=== PATIENT | male | born 2000 | race Hispanic/Latino ===

== ENCOUNTER 2018-11-21 16:04 | Emergency (ER) | payer OTHER ==
[2018-11-21] MEDS ORDERED: LIDOCAINE 1% 20 ML MDV ONE (16:24)
--- NOTE | 2018-11-21 16:51 | RAD REPORT ---
EXAM DESCRIPTION: RAD - Abdomen 1 View (KUB) - 11/21/2018 4:43 pm CLINICAL HISTORY: TRAUMA Pain COMPARISON: No comparisons FINDINGS: The bowel gas pattern is non-obstructive. No evidence of free air or pneumatosis. No suspi cious calcifications. No significant bony findings. IMPRESSION: Negative examination.
[2018-11-21 16:52] LABS: Absolute Lymphocytes (CBC) 2.2 K/uL (0.7-4.9); Absolute Monocytes 0.9 K/uL (0.1-1.3); Absolute Neutrophil 11.1 K/uL (1.8-8.0); Basophils % 0.5 % (0-1.3); Eosinophils % 1.2 % (0-4.4); Hematocrit 46.6 % (39.6-49.0); Lymphocytes % 15.4 % (15.3-44.8); MPV 9.9 fL (7.6-11.3); Monocytes % 6.2 % (3.3-12.3); RBC Red Blood Cell Count 5.03 M/uL (4.33-5.43)
--- NOTE | 2018-11-21 16:54 | RAD REPORT ---
EXAM DESCRIPTION: RAD - Chest Single View - 11/21/2018 4:43 pm CLINICAL HISTORY: TRAUMA Chest pain. COMPARISON: Tibia Fib Right W Comparison dated 11/21/2018; Foot Right W Comparison dated 11/21/2018Abdom en 1 View (KUB) dated 11/21/2018 FINDINGS: Portable technique limits examination quality. The lungs are grossly clear. The heart is normal in size. No displaced fractures. IMPRESSION: No acute intrathoracic process suspected.
[2018-11-21 17:00] LABS: BUN Blood Urea Nitrogen 7 mg/dL (7-18); Bicarbonate 27 mmol/L (21-32); Glucose Level 104 mg/dL (74-106); Potassium 3.8 mmol/L (3.5-5.1); Sodium Level 142 mmol/L (136-145)
[2018-11-21] MEDS ORDERED: CEFAZOLIN/SWI 1gm 1 GM/10 ML SYR ONE (17:03)
[2018-11-21] MEDS ORDERED: TETANUS & DIPHTHERIA TOX,ADULT 0.5 ML VIAL ONE (17:03)
[2018-11-21] MEDS ORDERED: DERMABOND SKIN ADHESIVE TOP ONE (17:08)
--- NOTE | 2018-11-21 17:39 | ER ---
Nurse's Notes [facility] Name: David Garvey Age: 18 yrs Sex: Male : 2000 Arrival Date: 11/21/2018 Time: 16:06 Bed 2 Private MD: Diagnosis: Auditory hallucinations;Laceration of Subcutaneous tissue abdomen without penetration of muscle or fascia ;Laceration without foreign body of left wrist;Laceration of chest wall without foreign body Presentation: 11/21 16:01 Presenting complaint: EMS states: pt has hx of schizophrenia/bipolar, hearing voices iw telling him to "get the demons out", pt states "it wouldn't come out", pt states he cut himself with 4 razor blades, superficial lacerations noted to left bicep, right forearm, right thigh, deep laceration noted to mid abdomen, approx 4 cm by 6 cm, bleeding controlled, Dr. Max at bedside to assess wound, pt A\\T\\OX3, skin pink, warm, dry, VSS. Care prior to arrival: Bleeding of injury controlled. Injury dressed. Mechanism of Injury: Laceration sustained assisted while self-inflicted from razor blade, Injury was self inflicted. 16:01 Acuity: SPEEDY 2 iw 16:01 Method Of Arrival: EMS: [facility] iw 16:01 Trauma event details: Injury occurred in the [facility], Injury occurred: in an iw institution. Injury occurred: November 21, 2018. 16:01 Note received report at 1543 from [facility] that pt sustained deep laceration to iw abdomen, appeared to be though muscle, 7 inches X 3 inches, Trauma STAT was called at that time. 16:05 Transition of care: patient was not received from another setting of care. Onset of iw symptoms was November 21, 2018. Risk Assessment: Do you want to hurt yourself or someone else? Patient reports no desire to harm self or others. Initial Sepsis Screen: Does the patient meet any 2 criteria? No. Patient's initial sepsis screen is negative. Does the patient have a suspected source of infection? No. Patient's initial sepsis screen is negative. Trauma Activation: Stat Physician: ED Physician; Name: ; Notified At: ; Arrived At: Physician: General Surgeon; Name: ; Notified At: ; Arrived At: Physician: Radiology; Name: ; Notified At: ; Arrived At: Physician: Respiratory; Name: ; Notified At: ; Arrived At: Physician: Lab; Name: ; Notified At: ; Arrived At: Trauma Activation: Physician: ED Physician; Name: Dr. Arias/DANIELLE Marroquin; Notified At: 15:43; Arrived At: 15:43 Physician: General Surgeon; Name: Dr. Max; Notified At: 15:43; Arrived At: Physician: Radiology; Name: ; Notified At: 15:43; Arrived At: Physician: Respiratory; Name: Yanelis; Notified At: 15:43; Arrived At: 15:46 Physician: Lab; Name: Mirian; Notified At: 15:43; Arrived At: 15:46 Historical: - Allergies: 16:22 ANTIHISTAMINES; iw - Home Meds: 16:22 Effexor Oral daily [Active]; iw - PMHx: 16:22 Schizophrenia; Bipolar disorder; iw - PSHx: 16:22 None; iw - Immunization history: Last tetanus immunization: unknown. - Social history:: Smoking status: Patient uses tobacco products. - Ebola Screening: : Patient negative for fever greater than or equal to 101.5 degrees Fahrenheit, and additional compatible Ebola Virus Disease symptoms Patient denies exposure to infectious person Patient denies travel to an Ebola-affected area in the 21 days before illness onset No symptoms or risks identified at this time. Screenin:05 Nutritional screening: No deficits noted. Fall Risk None identified. iw 16:25 Abuse screen: Denies threats or abuse. Denies injuries from another. Tuberculosis iw screening: No symptoms or risk factors identified. Primary Survey: 16:01 NO uncontrolled hemorrhage observed. A: The patient is alert. Airway: patent, No iw supplemental oxygen in use on arrival. Breathing/Chest: Respiratory pattern: regular, Respiratory effort: spontaneous, Breath sounds: clear, bilaterally. Chest inspection: symmetrical rise and fall of the chest. Circulation: Cardiac rhythm: sinus tachycardia Heart tones present. Pulses: palpable right radial artery, left radial artery, left carotid pulse and right carotid pulse. Skin color: pink, Skin temperature: warm, dry. Disability Alert. 16:05 Exposure/Environment: All clothing and personal items were removed. There is no iw evidence of uncontrolled external bleeding. Obvious injury(ies) are noted at this time: laceration to mid abdomen A warming method has been applied: A warm blanket has been provided to the patient. 16:15 Reassessment Airway Airway Patent Breathing/Chest Respiratory pattern Regular iw Respiratory effort Spontaneous Breath sounds Clear Chest inspection Symmetrical Disability Alert. 17:00 Reassessment Airway Airway Patent Breathing/Chest Respiratory pattern Regular iw Disability Alert. Secondary Survey: 16:05 HEENT: No deficits noted. Head No injury/deformity Face Other dried blood noted to left iw side of mouth Eyes: No injury or deformity noted. Ears: clear bilaterally. Nose: clear to bilateral nares. Gastrointestinal: Abdomen is soft, flat, Other laceration to mid abd wall Bowel sounds present in all quadrants. Palpation No deficit noted. Musculoskeletal: Range of motion: intact in all extremities. Injury Description: Laceration sustained to abdomen, right arm, left arm and right leg. 17:00 Musculoskeletal: Range of motion: intact in all extremities. Injury Description: iw lacerations repaired, wound care complete, dressings in place, CMS intact, VSS. Assessment: 16:02 General: Appears in no apparent distress. Behavior is calm, cooperative. Pain: iw Complains of pain in abdomen Pain currently is 2 out of 10 on a pain scale. Neuro: Level of Consciousness is awake, alert, obeys commands, Oriented to person, place, time, situation, Moves all extremities. EENT: dried blood noted to left side of mouth, pt states he cut the corner of his mouth . Cardiovascular: Heart tones S1 S2 Patient's skin is warm and dry. Rhythm is regular. Respiratory: Respiratory effort is even, unlabored, Respiratory pattern is regular, Breath sounds are clear bilaterally. GI: GI: Abdomen is flat, non-distended, Bowel sounds present X 4 quads. Abd is soft and non tender X 4 quads. Derm: Skin is healthy with good turgor. Musculoskeletal: Range of motion: intact in all extremities. Injury Description: Laceration sustained to left bicep is superficial, 7.6 to 20 cm long, not bleeding, multiple lacerations noted to left bicep, mason-cross pattern across entire bicep. Injury Description: Laceration sustained to dorsal aspect of right forearm is superficial, 7.6 to 20 cm long, not bleeding, long, vertical scratches noted to forearm no active bleeding noted at this time. Injury Description: Laceration sustained to right quadriceps is superficial, 2.6 to 7.5 cm long, not bleeding, spells out "FREE HIM" across upper thigh area. 16:02 GI:. : No signs and/or symptoms were reported regarding the genitourinary system. iw Injury Description: Laceration sustained to middle abdominal area, superior to umbilicus is full thickness, 2.6 to 7.5 cm long, not bleeding, was sustained 30-60 minutes ago. 16:50 Reassessment: Patient appears in no apparent distress at this time. Patient and/or iw family updated on plan of care and expected duration. Pain level reassessed. Patient is alert, oriented x 3, equal unlabored respirations, skin warm/dry/pink. 17:30 Reassessment: Patient appears in no apparent distress at this time. Patient and/or iw family updated on plan of care and expected duration. Pain level reassessed. Patient is alert, oriented x 3, equal unlabored respirations, skin warm/dry/pink. 18:16 Reassessment: awaiting transport van to transport pt to another facility. iw Vital Signs: 16:02 BP 136 / 91; Pulse 111; Resp 18 S; Temp 98.0(TE); Pulse Ox 96% on R/A; Weight 95.25 kg; iw Height 5 ft. 9 in. (175.26 cm); Pain 2/10; 16:07 BP 125 / 82; Pulse 98; Resp 16 S; Pulse Ox 97% on R/A; Pain 2/10; iw 16:18 BP 123 / 75; Pulse 92; Resp 16; Temp 98.2(TE); Pulse Ox 100% on R/A; Pain 2/10; iw 17:07 BP 128 / 70; Pulse 87; Resp 16; Temp 98.0(TE); Pulse Ox 100% on R/A; Pain 0/10; iw 17:22 BP 110 / 70; Pulse 83; Resp 16; Pulse Ox 100% on R/A; iw 18:00 BP 126 / 84; Pulse 98; Resp 16; Temp 98.3(TE); Pulse Ox 100% on R/A; Pain 0/10; iw 16:02 Body Mass Index 31.01 (95.25 kg, 175.26 cm) iw Carmen Coma Score: 16:02 Eye Response: spontaneous(4). Verbal Response: oriented(5). Motor Response: obeys iw commands(6). Total: 15. 16:07 Eye Response: spontaneous(4). Verbal Response: oriented(5). Motor Response: obeys iw commands(6). Total: 15. Trauma Score (Adult): 16:02 Eye Response: spontaneous(1); Verbal Response: oriented(1); Motor Response: obeys iw commands(2); Systolic BP: > 89 mm Hg(4); Respiratory Rate: 10 to 29 per min(4); Mohawk Score: 15; Trauma Score: 12 16:07 Eye Response: spontaneous(1); Verbal Response: oriented(1); Motor Response: obeys iw commands(2); Systolic BP: > 89 mm Hg(4); Respiratory Rate: 10 to 29 per min(4); Mohawk Score: 15; Trauma Score: 12 17:07 Eye Response: spontaneous(1); Verbal Response: oriented(1); Motor Response: obeys iw commands(2); Systolic BP: > 89 mm Hg(4); Respiratory Rate: 10 to 29 per min(4); Carmen Score: 15; Trauma Score: 12 18:00 Eye Response: spontaneous(1); Verbal Response: oriented(1); Motor Response: obeys iw commands(2); Systolic BP: > 89 mm Hg(4); Respiratory Rate: 10 to 29 per min(4); Carmen Score: 15; Trauma Score: 12 ED Course: 16:05 Patient maintains SpO2 saturation greater than 95% on room air. Thermoregulation: warm iw blanket given to patient. 16:05 Inserted saline lock: 18 gauge in right antecubital area, using aseptic technique. iw 16:05 Patient has correct armband on for positive identification. iw 16:06 Patient arrived in ED. ss 16:09 Jojo Dave, RN is Primary Nurse. iw 16:18 Triage completed. iw 16:18 Delroy Arias MD is Attending Physician. rn 16:18 Shane Agrawal PA is PHCP. rn 16:30 Assist provider with laceration repair on abdomen that was between 2.6 to 7.5 cm using iw lacey. Set up tray. Performed by Shane SANTOS Dressed with 4X4s, KerwhitxBudJose, Patient tolerated well. 16:43 X-ray completed. Portable x-ray completed in exam room. Patient tolerated procedure ml well. 16:43 Abdomen 1 View (KUB) XRAY In Process Unspecified. EDMS 16:43 CXR XRAY In Process Unspecified. EDMS 16:47 Arm band placed on. iw 16:50 Assist provider with laceration repair on mouth that was 2.5 cm. or less using sutures. iw Set up tray. Performed by Sahne SANTOS Patient tolerated well. 18:20 IV discontinued, intact, bleeding controlled, No redness/swelling at site. Pressure iw dressing applied. Administered Medications: 16:10 Drug: NS 0.9% 1000 ml Route: IV; Rate: 1000 ml; Site: right antecubital; iw 16:30 Drug: Lidocaine (1 %) 1 vials Volume: 20 ml; Route: Infiltration; iw 16:56 Drug: Ancef 1 grams Route: IVPB; Site: right antecubital; iw 16:56 Drug: Tetanus-Diphtheria Toxoid Adult 0.5 ml {Track Greaser: [employer]. Exp: iw 03/21/2020. Lot #: [id number]. } Route: IM; Site: right deltoid; 18:00 Follow up: Response: No adverse reaction iw Intake: 18:30 IV: 1000ml (IV Fluid); Total: 1000ml. iw Outcome: 17:38 Discharge ordered by MD. barroso 18:35 Discharged to Law Enforcement iw 18:35 Condition: good 18:35 Discharge instructions given to patient, Instructed on discharge instructions, follow up and referral plans. medication usage, Demonstrated understanding of instructions, follow-up care, medications, Prescriptions given X 1. 18:35 Patient's length of stay in the Emergency Department was greater than 2 hours. waiting iw for assisted transportation Patient's length of stay extended due to 18:36 Patient left the ED. iw Signatures: Dispatcher [employer] Jojo Yost RN RN iw Lopez, Melissa ml Nieto, Roman, MD MD rn Smirch, Shelby, RN RN ss Roszak, Josh, PA PA [id number] Joaquin, Henry, RN RN hj Corrections: (The following items were deleted from the chart) 16:19 16:07 BP 136 / 91; hj iw 16:20 16:07 BP 136 / 91; Pulse 111bpm; Resp 18bpm; Spontaneous; Pulse Ox 96% RA; Temp 98.0F iw Temporal; 95.25 kg; Height 5 ft. 9 in.; BMI: 31.0; Pain 2/10; iw 16:38 16:02 Injury Description: Laceration sustained to right quadriceps is superficial, 2.6 iw to 7.5 cm long, not bleeding, spells out "FREE HIM" across upper thigh area iw 17:08 17:07 BP 128 / 70; Pulse 87bpm; Resp 16bpm; Pulse Ox 100% RA; Pain 0/10; iw iw
--- NOTE | 2018-11-21 17:39 | EDPHYS ---
Physician Documentation [facility] Name: David Garvey Age: 18 yrs Sex: Male : 2000 Arrival Date: 11/21/2018 Time: 16:06 Bed 2 Private MD: ED Physician Delroy Arias HPI: 11/21 17:19 This 18 yrs old Male presents to ER via EMS with complaints of Suicidal jr8 Ideation, Trauma Complaint, Laceration. 17:19 Onset: The symptoms/episode began/occurred acutely, today. Associated signs and jr8 symptoms: The patient has no apparent associated signs or symptoms. Severity of symptoms: At their worst the symptoms were moderate in the emergency department the symptoms are unchanged. The patient has not experienced similar symptoms in the past. The patient has not recently seen a physician. Patient stated that he was hearing voices that would not stop. Cut himself superficially on arms and legs. Carved Hate Me into his skin. Lacerations noted to left wrist, mouth, right chest, and mid abdomen. Initial EMS report was suspected deep laceration to mid abdomen with possible penetration into abdominal cavity. Historical: - Allergies: 16:22 ANTIHISTAMINES; iw - Home Meds: 16:22 Effexor Oral daily [Active]; iw - PMHx: 16:22 Schizophrenia; Bipolar disorder; iw - PSHx: 16:22 None; iw - Immunization history: Last tetanus immunization: unknown. - Social history:: Smoking status: Patient uses tobacco products. - Ebola Screening: : Patient negative for fever greater than or equal to 101.5 degrees Fahrenheit, and additional compatible Ebola Virus Disease symptoms Patient denies exposure to infectious person Patient denies travel to an Ebola-affected area in the 21 days before illness onset No symptoms or risks identified at this time. ROS: 17:19 Eyes: Negative for injury, pain, redness, and discharge, ENT: Negative for injury, jr8 pain, and discharge, Neck: Negative for injury, pain, and swelling, Cardiovascular: Negative for chest pain, palpitations, and edema, Respiratory: Negative for shortness of breath, cough, wheezing, and pleuritic chest pain, Abdomen/GI: Negative for abdominal pain, nausea, vomiting, diarrhea, and constipation, Back: Negative for injury and pain, MS/Extremity: Negative for injury and deformity, Neuro: Negative for headache, weakness, numbness, tingling, and seizure. 17:19 Skin: Positive for laceration(s), of the face, chest, abdomen, right arm, left arm, right leg and left leg. 17:19 Psych: Positive for auditory hallucinations. Exam: 17:19 Head/Face: Normocephalic, atraumatic. Eyes: Pupils equal round and reactive to light, jr8 extra-ocular motions intact. Lids and lashes normal. Conjunctiva and sclera are non-icteric and not injected. Cornea within normal limits. Periorbital areas with no swelling, redness, or edema. ENT: Nares patent. No nasal discharge, no septal abnormalities noted. Tympanic membranes are normal and external auditory canals are clear. Oropharynx with no redness, swelling, or masses, exudates, or evidence of obstruction, uvula midline. Mucous membranes moist. Neck: Trachea midline, no thyromegaly or masses palpated, and no cervical lymphadenopathy. Supple, full range of motion without nuchal rigidity, or vertebral point tenderness. No Meningismus. Chest/axilla: Normal chest wall appearance and motion. Nontender with no deformity. No lesions are appreciated. Cardiovascular: Regular rate and rhythm with a normal S1 and S2. No gallops, murmurs, or rubs. Normal PMI, no JVD. No pulse deficits. Respiratory: Lungs have equal breath sounds bilaterally, clear to auscultation and percussion. No rales, rhonchi or wheezes noted. No increased work of breathing, no retractions or nasal flaring. Back: No spinal tenderness. No costovertebral tenderness. Full range of motion. MS/ Extremity: Pulses equal, no cyanosis. Neurovascular intact. Full, normal range of motion. Neuro: Awake and alert, GCS 15, oriented to person, place, time, and situation. Cranial nerves II-XII grossly intact. Motor strength 5/5 in all extremities. Sensory grossly intact. Cerebellar exam normal. Normal gait. 17:19 Abdomen/GI: Inspection: large 7 cm laceration down through subcutaneous tissue but not into fascia noted with mild bleeding, Bowel sounds: active, Palpation: soft, in all quadrants, mild abdominal tenderness, in the just superior to umbilicus , mass, is not appreciated, rebound tenderness, is not appreciated, voluntary guarding, is not appreciated, involuntary guarding, is not appreciated, no appreciated organomegaly, Indicators: McBurney's point is not tender, Dong's sign is negative, Rovsing's sign is negative, Liver: tenderness, is not appreciated. 17:19 Skin: Patient has multiple superficial lacerations to arms and legs. Left wrist with slightly deeper but well approximated laceration to ventral surface. Another slightly larger but again well approximated laceration noted to right chest wall. Left corner of mouth with mucosal laceration noted that is approximately 1.5 cm in length . Vital Signs: 16:02 BP 136 / 91; Pulse 111; Resp 18 S; Temp 98.0(TE); Pulse Ox 96% on R/A; Weight 95.25 kg; iw Height 5 ft. 9 in. (175.26 cm); Pain 2/10; 16:07 BP 125 / 82; Pulse 98; Resp 16 S; Pulse Ox 97% on R/A; Pain 2/10; iw 16:18 BP 123 / 75; Pulse 92; Resp 16; Temp 98.2(TE); Pulse Ox 100% on R/A; Pain 2/10; iw 17:07 BP 128 / 70; Pulse 87; Resp 16; Temp 98.0(TE); Pulse Ox 100% on R/A; Pain 0/10; iw 17:22 BP 110 / 70; Pulse 83; Resp 16; Pulse Ox 100% on R/A; iw 18:00 BP 126 / 84; Pulse 98; Resp 16; Temp 98.3(TE); Pulse Ox 100% on R/A; Pain 0/10; iw 16:02 Body Mass Index 31.01 (95.25 kg, 175.26 cm) iw Lotus Coma Score: 16:02 Eye Response: spontaneous(4). Verbal Response: oriented(5). Motor Response: obeys iw commands(6). Total: 15. 16:07 Eye Response: spontaneous(4). Verbal Response: oriented(5). Motor Response: obeys iw commands(6). Total: 15. Trauma Score (Adult): 16:02 Eye Response: spontaneous(1); Verbal Response: oriented(1); Motor Response: obeys iw commands(2); Systolic BP: > 89 mm Hg(4); Respiratory Rate: 10 to 29 per min(4); Lotus Score: 15; Trauma Score: 12 16:07 Eye Response: spontaneous(1); Verbal Response: oriented(1); Motor Response: obeys iw commands(2); Systolic BP: > 89 mm Hg(4); Respiratory Rate: 10 to 29 per min(4); Lotus Score: 15; Trauma Score: 12 17:07 Eye Response: spontaneous(1); Verbal Response: oriented(1); Motor Response: obeys iw commands(2); Systolic BP: > 89 mm Hg(4); Respiratory Rate: 10 to 29 per min(4); Carmen Score: 15; Trauma Score: 12 18:00 Eye Response: spontaneous(1); Verbal Response: oriented(1); Motor Response: obeys iw commands(2); Systolic BP: > 89 mm Hg(4); Respiratory Rate: 10 to 29 per min(4); Lotus Score: 15; Trauma Score: 12 Laceration: 17:19 Wound Repair of 7cm ( 2.8in ) subcutaneous laceration to abdomen. Irregularly shaped.. jr8 Minimal bleeding noted.. Distal neuro/vascular/tendon intact. Anesthesia: Local anesthetic administered with 10 mls of 1% lidocaine. Wound prep: Extensive cleansing with betadine, Wound irrigation with saline, Wound explored extensively, Copious irrigation. Skin closed with 15 l[address] [place] using staple gun. Patient tolerated well. 17:19 Wound Repair of 2cm ( 0.8in ) partial thickness laceration to left wrist. Linear jr8 shaped.. Minimal bleeding noted.. Distal neuro/vascular/tendon intact. Wound prep: Extensive cleansing with hibiclenz, Wound irrigation with saline, Wound explored extensively. Skin closed with 1 thin layer Adhesive skin closure using Dermabond. Patient tolerated well. 17:19 Wound Repair of 2cm ( 0.8in ) partial thickness laceration to right anterior chest. jr8 Distal neuro/vascular/tendon intact. Wound prep: Moderate cleansing with hibiclenz, Wound irrigation with saline, Wound explored extensively. Skin closed with 1 thin layer Adhesive skin closure using Dermabond. Patient tolerated well. 17:19 Wound Repair of 1.5cm ( 0.6in ) mucosal laceration to left corner of mouth. Distal jr8 neuro/vascular/tendon intact. Wound prep: Moderate cleansing with hibiclenz, Wound irrigation with saline, Wound explored extensively. Mucosal layer closed with 2 5-0 fast absorbing using interrupted sutures and sterile technique. Patient tolerated well. MDM: 16:18 Patient medically screened. rn 16:18 ED course: Pt evaluated alongside Dr. Max for trauma stat activation, s/p cutting rn himself, half-way concerned may have cut deep, no sign of peritoneal perforation per Dr. Max, cxr and kub negative for foreign body, will irrigate wound and staple. . 17:19 Data reviewed: vital signs, nurses notes, lab test result(s), radiologic studies, plain jr8 films. Data interpreted: Pulse oximetry: on room air is 100 %. Interpretation: normal. Counseling: I had a detailed discussion with the patient and/or guardian regarding: the historical points, exam findings, and any diagnostic results supporting the discharge/admit diagnosis, lab results, radiology results, the need for outpatient follow up, a family practitioner, a psychiatrist, to return to the emergency department if symptoms worsen or persist or if there are any questions or concerns that arise at home. 17:35 ED course: Dr. Max arrived for trauma stat to assist in initial assessment of jr8 potentially critical patient based on EMS report. Dr. Max arrived at 15:50. . 11/21 16:44 Order name: CBC with Diff 8 11/21 16:44 Order name: Basic Metabolic Panel [facility] 11/21 16:17 Order name: Abdomen 1 View (KUB) XRAY; Complete Time: 16:56 eb 11/21 16:17 Order name: CXR XRAY; Complete Time: 16:56 eb 11/21 16:44 Order name: CBC with Automated Diff; Complete Time: 17:06 EDMS 11/21 16:44 Order name: Basic Metabolic Panel; Complete Time: 17:06 EDMS 11/21 16:44 Order name: IV; Complete Time: 17:23 jr8 Administered Medications: 16:10 Drug: NS 0.9% 1000 ml Route: IV; Rate: 1000 ml; Site: right antecubital; iw 16:30 Drug: Lidocaine (1 %) 1 vials Volume: 20 ml; Route: Infiltration; iw 16:56 Drug: Ancef 1 grams Route: IVPB; Site: right antecubital; iw 16:56 Drug: Tetanus-Diphtheria Toxoid Adult 0.5 ml {[employer]: [employer]. Exp: iw 03/21/2020. Lot #: [id number]. } Route: IM; Site: right deltoid; 18:00 Follow up: Response: No adverse reaction iw Disposition: 11/21/18 17:38 Discharged to Law Enforcement. Impression: Auditory hallucinations, Laceration of Subcutaneous tissue abdomen without penetration of muscle or fascia , Laceration without foreign body of left wrist, Laceration of chest wall without foreign body. - Condition is Stable. - Discharge Instructions: Laceration Care, Adult, Psychosis. - Prescriptions for Keflex 500 mg Oral Capsule - take 1 capsule by ORAL route every 6 hours for 10 days; 40 capsule. - Medication Reconciliation Form, Thank You Letter, Antibiotic Education, Prescription Opioid Use form. - Follow up: Private Physician; When: Upon discharge from the Emergency Department; Reason: Recheck today's complaints, Continuance of care, Re-evaluation by your physician. - Problem is new. - Symptoms have improved. Addendum: 11/25/2018 07:02 Co-signature as Attending Physician, Delroy Arias MD. r n Signatures: Dispatcher [employer] EDMS Jojo Dave RN RN iw Nieto, Roman, MD MD rn Roszak, Josh, PA PA jr8 Corrections: (The following items were deleted from the chart) 11/21 18:36 17:38 11/21/2018 17:38 Discharged to Law Enforcement. Impression: Auditory iw hallucinations; Laceration of Subcutaneous tissue abdomen without penetration of muscle or fascia ; Laceration without foreign body of left wrist; Laceration of chest wall without foreign body. Condition is Stable. Forms are Medication Reconciliation Form, Thank You Letter, Antibiotic Education, Prescription Opioid Use. Follow up: Private Physician; When: Upon discharge from the Emergency Department; Reason: Recheck today's complaints, Continuance of care, Re-evaluation by your physician. Problem is new. Symptoms have improved. jr8
== END 2018-11-21 18:36 ==
LOC: ER 16:04
PROC: 0JQ10ZZ Repair Face Subcutaneous Tissue and Fascia, Open Approach (ICD-10-PCS; principal; 2018-11-21)
PROC: 0JQ80ZZ Repair Abdomen Subcutaneous Tissue and Fascia, Open Approach (ICD-10-PCS; 2018-11-21)
PROC: 0JQ60ZZ Repair Chest Subcutaneous Tissue and Fascia, Open Approach (ICD-10-PCS; 2018-11-21)
PROC: 0JQH0ZZ Repair Left Lower Arm Subcutaneous Tissue and Fascia, Open Approach (ICD-10-PCS; 2018-11-21)
DX: R44.0 Auditory hallucinations (principal); S61.512A Laceration without foreign body of left wrist, initial encounter; S31.119A Laceration without foreign body of abdominal wall, unspecified quadrant without penetration into peritoneal cavity, initial encounter; S21.119A Laceration without foreign body of unspecified front wall of thorax without penetration into thoracic cavity, initial encounter; S01.512A Laceration without foreign body of oral cavity, initial encounter; X78.9XXA Intentional self-harm by unspecified sharp object, initial encounter; Y93.9 Activity, unspecified; Y92.149 Unspecified place in prison as the place of occurrence of the external cause; Z72.0 Tobacco use; Z88.8 Allergy status to other drugs, medicaments and biological substances; F31.9 Bipolar disorder, unspecified; F20.9 Schizophrenia, unspecified
CPT/HCPCS: 36415; 71045; 74018; 80048; 85025; 90714; 96374; 99284; J0690